=== PATIENT | female | born 1965 | race Caucasian/White ===

== ENCOUNTER 2023-08-02 16:42 | Emergency (ER) | payer SELFPAY ==
[~2023-08-02] VITALS: Ht 170.2 cm; Wt 106.3 kg
[2023-08-02] MEDS ORDERED: CLOTCRE3 EX (20:05)
[2023-08-02] MEDS ORDERED: METF-489 PO (20:05)
[2023-08-02] MEDS ORDERED: BACDST PO (20:05)
[2023-08-02] MEDS ORDERED: LISI40TA16 PO (20:05)
[2023-08-02] MEDS ORDERED: DICL75TA3 PO (20:05)
[2023-08-02 20:47] VITALS: BP 165/79; PULSE 84; RESP 16; TEMP 97.9; O2SAT 98
== END 2023-08-02 20:50 | disposition home or self-care (01) ==
LOC: ER 16:42
DX: E11.65 Type 2 diabetes mellitus with hyperglycemia (principal); B35.3 Tinea pedis; L73.2 Hidradenitis suppurativa; I10 Essential (primary) hypertension; Z76.0 Encounter for issue of repeat prescription

== ENCOUNTER 2025-02-19 16:44 | Emergency (ER) | payer MEDICAID ==
[~2025-02-19] VITALS: Ht 167.6 cm; Wt 101.9 kg
[~2025-02-19 16:44] MED LIST: BACDST PO; CLOTCRE3 EX; DICL75TA3 PO; LISI40TA16 PO; METF-489 PO
[2025-02-19 18:34] VITALS: TEMP 98.3
[2025-02-19] MEDS ORDERED: METF-370 PO ×2 (18:45→18:46)
[2025-02-19] MEDS ORDERED: LISI40TA16 PO (18:45)
--- NOTE | 2025-02-19 18:46 | ED.PDOC ---
History of present illness HPI Comments 59-year-old female presents to ER for high blood pressure. Patient with PMH significant for HTN and DM states that [facility] due to "high blood pressure". Blood pressure on arrival to ER is noted to be 155/80, noting she is unsure what her blood pressure reading was at the crisis center and states she does need a refill of her lisinopril 40 mg Q daily, because she "only has 2 tablets" of this medication left. Patient also reports that she ran out of her metformin 500 mg t.i.d. one month ago and would like a refill of this medication, blood sugar on arrival to ER is noted to be 400. Patient presents to ER ambulatory on arrival, alert oriented x4, with steady gait and denies any current symptoms. Denies headache, dizziness, shortness of breath, chest pain, nausea/vomiting, SI/HI or any further symptoms/complaints Chief Complaint: High Blood Pressure Time Seen by MD: 18:07 Primary Care Provider: TERESE History of present illness: Nurses Notes, Medications, Allergies Allergies: Coded Allergies: NO KNOWN ALLERGIES (Unverified , 08/02/23) Home Meds Active Scripts Metformin Hydrochloride (Metformin Hcl) 500 Mg Tab, 1 TAB PO TID, #90 TAB Prov:ERICA LUCAS 02/19/25 Lisinopril (Lisinopril) 40 Mg Tab, 1 TAB PO DAILY, #7 TAB 0 Refills Prov:ERICA LUCAS 02/19/25 Diclofenac Sodium (Diclofenac Sodium Dr) 75 Mg Tab, 1 TAB PO BID, #60 TAB 1 Refill Prov:AMINATA FAN 08/02/23 Sulfamethoxazole W/Trimethopri (Bactrim Ds Tablet) 1 Tab Tb, 1 TAB PO BID for 10 Days, #20 TAB Prov:AMINATA FAN 08/02/23 Clotrimazole W/ Betamethasone (Clotrimazole/Betamethason 1-0.05 %) 1 Cre Cre, 1 CRE EX BID for 10 Days, #60 CRE Prov:AMINATA FAN 08/02/23 Metformin Hydrochloride (METFORMIN HCL ER) 500 Mg Tab, 1 TAB PO BID, #60 TAB 1 Refill Prov:AMINATA FAN 08/02/23 Information Source: Patient Mode of Arrival: Ambulatory Past Medical History PAST MEDICAL HISTORY: CVA, DM, HTN Surgical History: Denies all surgeries NATUROPATHIC ONCOLOGY PROVIDER History: No Pertinent NATUROPATHIC ONCOLOGY PROVIDER History Family History Family History: Unknown Social History Smoker: Non-Smoker Alcohol: Denies ETOH Use Drugs: Denies Drug Use Lives In: Home Constitutional: reports: others (As stated in HPI) EENTM: denies: blurred vision, double vision, ear bleeding, ear discharge, ear drainage, ear pain, ear ringing, eye pain, eye redness, hearing loss, mouth pain, mouth swelling, nasal discharge, nose bleeding, nose congestion, nose pain, photophobia, tearing, throat pain, throat swelling, voice changes, others Respiratory: denies: cough, hemoptysis, orthopnea, SOB at rest, shortness of breath, SOB with excertion, stridor, wheezing, others Cardiovascular: denies: chest pain, dizzy spells, diaphoresis, Dyspnea on exertion, edema, irregular heart beat, left arm pain, lightheadedness, palpitations, PND, syncope, others Gastrointestinal: denies: abdomen distended, abdominal pain, blood streaked bowels, constipated, diarrhea, dysphagia, difficulty swallowing, hematemesis, melena, nausea, poor appetite, poor fluid intake, rectal bleeding, rectal pain, vomiting, others Genitourinary: denies: abnormal vagina bleeding, burning, dyspareunia, dysuria, flank pain, frequency, hematuria, incontinence, pain, , vagina discharge, urgency, others Neurological: denies: dizziness, fainting, headache, left sided numbness, left sided weakness, numbness, paresthesia, pre-existing deficit, right sided numbness, right sided weakness, seizure, speech problems, tingling, tremors, weakness, others Musculoskeletal: denies: back pain, gout, joint pain, joint swelling, muscle pain, muscle stiffness, neck pain, others Integumetry: denies: bruises, change in color, change in hair/nails, dryness, laceration, lesions, lumps, rash, wounds, others Allergic/Immunocompromised: denies: Difficulty Healing, Frequent Infections, Hives, Itching, others Hematologic/Lymphatic: denies: anemia, blood clots, easy bleeding, easy bruising, swollen glands, others Endocrine: denies: excessive hunger, excessive sweating, excessive thirst, excessive urination, flushing, intolerance to cold, intolerance to heat, u nexplained weight gain, unexplained weight loss, others Psychiatric: denies: anxiety, bipolar disorder, depression, hopeless, panic disorder, schizophrenia, sleepless, suicidal, others Physical Exam General Appearance: No Apparent Distress, Obese HEENT: PERRL/EOMI Neck: Full Range of Motion, Non-Tender, Normal Respiratory: Chest Non-Tender, Lungs Clear, No Accessory Muscle Use, No Respir atory Distress, Normal Breath Sounds Cardiovascular: No Murmur, No Gallop, Regular Rate/Rhythm Breast Exam: Deferred Gastrointestinal: NOT DONE Genitalia: Deferred Pelvic: Deferred Rectal: Deferred Extremities: Normal capillary refill, Normal range of motion Neurologic: Alert, mba intern II-XII nml as Tested, No Motor Deficits, Normal Affect, Normal Mood, No Sensory Deficits Cerebellar Function: Normal Reflexes: Normal Skin: Dry, Normal Color, Warm Peripheral Pulses: 2+ Radial (R), 2+ Radial (L), 2+ Brachial (R), 2+ Brachial (L) Lymphatic: No Adenopathy Was a procedure done? Was a procedure done?: No Sedation Sedation?: No Differential Diagnosis (DM) Differential Diagnosis: Dehydration, DKA, Hypoglycemia, Other (Hypertensive emergency) X-Ray, Labs, Meds, VS Vital Signs Date Time Temp Pulse Resp B/P (MAP) Pulse Ox O2 Delivery O2 Flow Rate FiO2 02/19/25 20:22 87 18 125/73 (90) 95 02/19/25 18:34 98.3 99 20 155/80 (105) 95 98.3 02/19/25 18:34 99 20 95 Room Air 02/19/25 17:02 98.3 95 20 155/80 (105) 99 98.3 Lab Test 02/19/25 20:43 02/19/25 18:59 02/19/25 16:51 02/19/25 16:50 Range/Units POC Glucose 318 H 376 H 413 *H 400 H 70-106 mg/dl Current Medications Medications (Trade) Dose Ordered Sig/La Route Start Time Stop Time Status Last Admin Sodium Chloride 1,000 ml @ 1,000 mls/hr Q1H ONCE IV 02/19/25 18:45 02/19/25 19:44 DC 02/19/25 18:49 POC glucose levels reviewed Hep-Lock IV ordered NS 1 L IV ordered Patient in no distress and asymptomatic during ER visit/prior to discharge Advised on importance of monitoring/recording blood pressure readings and blood glucose levels closely at home Prescriptions below were verified with patient/patients prior to prescriptions Advised to follow up with PCP in 1-2 days Patient alert and oriented x4 prior to discharge. Patient verbalized understanding and agreeable with current plan of care Advised to return to ER immediately if symptoms worsen Time of 1ST Reevaluation: 18:22 Reevaluation 1ST: N/A Time of 2ND Reevaluation: 21:00 Reevaluation 2ND: Improved Patient Education/Counseling: Diagnosis, Treatment, Prognosis, Need For Follow Up Family Education/Counseling: No Family Present Departure 1 Departure Time of Disposition: 21:02 Impression: Primary Impression: Poorly-controlled hypertension Additional Impression: Poorly controlled diabetes mellitus Disposition: 01 HOME / SELF CARE / HOMELESS Condition: Stable e-Prescriptions Metformin Hydrochloride (Metformin Hcl) 500 Mg Tab 1 TAB PO TID, #90 TAB Prov: ERICA LUCAS 02/19/25 Lisinopril (Lisinopril) 40 Mg Tab 1 TAB PO DAILY, #7 TAB 0 Refills Prov: ERICA LUCAS 02/19/25 Discharged With: Friend Critical Care Note Critical Care Time?: No Stability Stability form required: No Heart Score Heart Score: Heart Score Response (Comments) Value History N/A 0 EKG N/A 0 Age N/A 0 Risk Factors N/A 0 Troponin N/A 0 Total 0 ERICA LUCAS Feb 19, 2025 18:46
[2025-02-19] MEDS: SODIUM CHLORIDE 0.9% 1,000 ML IV ONE (18:49)
[2025-02-19 20:22] VITALS: BP 125/73; PULSE 87; RESP 18; O2SAT 95
== END 2025-02-19 21:10 | disposition home or self-care (01) ==
LOC: ER 16:44
DX: E11.65 Type 2 diabetes mellitus with hyperglycemia (principal); I10 Essential (primary) hypertension; Z86.73 Personal history of transient ischemic attack (TIA), and cerebral infarction without residual deficits; Z79.84 Long term (current) use of oral hypoglycemic drugs; Z79.899 Other long term (current) drug therapy
CPT/HCPCS: 82947; 96360; 96361; 99283; J7030; 82962